=== PATIENT | male | born 1970 | race African-American/Black ===

== ENCOUNTER 2020-04-29 18:46 | Emergency (ER) | payer OTHER ==
[~2020-04-29] VITALS: Ht 162.6 cm; Wt 87.3 kg
[2020-04-29 18:48] VITALS: Ht 162.6 cm; Wt 87.3 kg
[2020-04-29] MEDS ORDERED: ZITHROMAX250 MG PO (18:49)
[2020-04-29] MEDS ORDERED: MUCINEX DM ER1 EAC1 PO (18:50)
[2020-04-29] MEDS ORDERED: ACETAMINOPHEN500 M1 PO (18:51)
[2020-04-29] MEDS ORDERED: XOPENEX HFA15 GM INH (18:51)
[2020-04-29] MEDS ORDERED: DEXAMETHASONE2 MG PO (18:52)
[2020-04-29 20:52] LABS: BASOPHILS 0.1 % (0-2); EOSINOPHILS 0 % (0-7); HEMATOCRIT 42.2 % (42.0-54.0); HEMOGLOBIN 14.3 g/dL (13.5-17.5); IMMATURE GRANULOCYTES 1.2 % (0-5); LYMPHOCYTES 6.8 % (15-50); MCH 27.6 pg (26.0-34.0); MCHC 33.9 g/dL (31.0-37.0); MCV 81.3 fL (80.0-100.0); MEAN PLATELET VOLUME 9.7 fL (7.4-10.4); MONOCYTES 7.8 % (2-11); NEUTROPHILS 84.1 % (40-80); PLATELET COUNT 201 10x3/uL (130-400); RBC 5.19 10x6/uL (4.20-6.10); RDW 13.3 % (11.5-14.5); WBC 8.1 10x3/uL (4.8-10.8)
[2020-04-29 21:01] LABS: CALC OSMOLALITY 269 mosm/kg (275-300); CALCIUM 8.1 mg/dL (8.5-10.1); CARBON DIOXIDE 25.2 mmol/L (21.0-32.0); CHLORIDE - SERUM 100 mmol/L (98-107); CREATININE - SERUM 1.2 mg/dL (0.6-1.3); GLUCOSE 139 mg/dL (74-106); SODIUM 133 mmol/L (136-145); UREA NITROGEN 18 mg/dL (7-18); eGFR NON AFRICAN AMERICAN 69 mL/min (90-120)
[2020-04-29 21:15] LABS: ALBUMIN 2.9 g/dL (3.4-5.0); ALKALINE PHOSPHATASE 127 U/L (30-120); ALT (SGPT) 128 U/L (10-68); BILIRUBIN - TOTAL 0.73 mg/dL (0.2-1.3); C-REACTIVE PROTEIN 4.4 mg/dL (0.0-0.9); PRO BNP 139 pg/mL (0-125); PROTEIN - SERUM 6.7 g/dL (6.4-8.2); TROPONIN-I < 0.017 ng/mL (0.000-0.060)
[2020-04-30 00:17] VITALS: BP 123/82
== END 2020-04-30 00:18 | disposition other institution (70) ==
LOC: D.ER 18:46
PROVIDERS: Family Medicine
DX: U07.1 COVID-19 (principal); R09.02 Hypoxemia